=== PATIENT | male | born 1960 | race Caucasian/White ===

== ENCOUNTER 2021-06-15 02:46 | Emergency (ER) | payer BC ==
--- OUTSIDE RECORDS SUMMARY | 2021-06-15 02:49 | XMS REPORT | Continuity of Care Document ---
:1960 Author Organization [facility] t Address [address] [place] [address] Care Team Providers Name Role Phone Erick Francisco MD Primary Care Physician Therapy, Covid Infusion Attending Clinician Unavailable Doctor Unassigned, Name Attending Clinician Unavailable Lab, Fam Pob I Attending Clinician Unavailable SKY Attending Clinician Unavailable Problems Condition Condition Condition Status Onset Resolution Last Treating Co mments Source Name Details Category Date Date Treatment Clinician Date No known No known Disease Metho di active active st problems problems Hospit a l Allergies, Adverse Reactions, Alerts This patient has no known allergies or adverse reactions. Family History Family Member Diagnosis Comments Start Date Stop Date Source Natural brother Blood Clots [facility] Natural father Heart disease [facility] father Stroke [facility] Social History Social Habit Start Date Stop Date Quantity Comments Source Tobacco use and 2019-11-30 2019-11-30 Former user [facility] exposure 00:00:00 00:00:00 Hospital Alcohol intake 2019-11-30 2019-11-30 Current drinker [facility] dist 00:00:00 00:00:00 of alcohol Hospital (finding) History of 1984-11-03 Snuff User [facility] tobacco use 00:00:00 Hospital Sex Assigned At [birth year] [facility] 00:00[facility]00 00:00:00 Hospital Smoking Status Start Date Stop Date Source Never smoker [facility] Medications Ordered Filled Start Stop Current Ordering Indication Dosage Frequency Signature Comments Components Source Medication Medication Date Date Medication? Clinician (SIG) Name Name ondansetron Yes 4mg Q8H Take 1 Meth toshia (ZOFRAN) 4 -09 tablet (4 st MG tablet 00:00: mg total) Hos john 00 by mouth l every 8 (eight) hours as needed for nausea or vomiting. naloxegol 2019-0 Yes 25mg QD Take 1 Method i (MOVANTIK) 1-09 tablet (25 st 25 mg 00:00: mg total) Hospita tablet 00 by mouth l tablet daily before breakfast. ezetimibe 2018-0 Yes [facility] (ZETIA) 10 - st mg tablet 00:00: Hospita 00 l irbesartan 2019-0 Yes 150mg Q.5D 150 mg 2 Me thodi (AVAPRO) 07-30 (two) st 300 MG 00:00: times a Hospita tablet 00 day. l simvastatin 2018-0 Yes Method i (ZOCOR) 10 - st MG tablet 00:00: Hospita 00 l Procedures This patient has no known procedures. Plan of Care Planned Activity Planned Date Details Comments Source Future Scheduled Test COVID-19 VACCINE (1) [facility] [code = COVID-19 VACCINE (1)] Future Scheduled Test Hepatitis C screening [facility] (procedure) [code = [id number]] Future Scheduled Test COLONOSCOPY SCREENING [facility] [code = COLONOSCOPY SCREENING] Future Scheduled Test SHINGLES VACCINES (#1) [facility] [code = SHINGLES VACCINES (#1)] Future Scheduled Test INFLUENZA VACCINE [code [facility] = INFLUENZA VACCINE] Encounters Start End Encounter Admission Attending Care Care Encounter Source Date/Time Date/Time Type Type Clinicians Facility Department ID 2020-12-26 2020-12-26 Nurse Therapy, [facility] ..[id number] 16:09:54 18:06:53 Visit [facility] Leif Garcia [id number] Infusion [place] [id number] Surgical [id number] Center 053 2020-12-26 2020-12-26 Orders Doctor DIPAK 1..840.114 [id number] 00:00:00 00:00:00 Only Unassigned, KARIN [id number] [facility] [id number] 2020-12-24 2020-12-24 Laboratory Lab, [facility] 1..840.114 [id number] 10:58:58 11:18:58 Only Fam Pob I Health [id number] [place] [id number] [id number] nal 0[address] 2020-12-24 2020-12-24 Letter Doctor DIPAK [id number] 00:00:00 00:00:00 (Out) Unassigned, KARIN [id number] [facility] [id number] 2019-12-30 2019-12-30 Outpatient [facility] [id number] [place] 00:00:00 00:00:00 HIREN [address] Results This patient has no known results.
[2021-06-15] MEDS ORDERED: KETOROLAC 30 MG/ML INJ ONE (04:51)
[2021-06-15] MEDS ORDERED: ONDANSETRON 4 MG/2 ML VIAL ONE ×2 (04:51→06:42)
[2021-06-15] MEDS ORDERED: MORPHINE 4 MG/ML SYR ONE (04:51)
[2021-06-15] MEDS ORDERED: NA CHLORIDE 0.9% 1,000 ML ONE ×3 (04:52→07:44)
[2021-06-15 04:59] LABS: Basophils % 0.7 % (0-1.3); Hematocrit 44.8 % (39.6-49.0); MPV 11.2 fL (7.6-11.3); RBC Red Blood Cell Count 4.75 M/uL (4.33-5.43)
[2021-06-15 05:13] LABS: Albumin 4.4 g/dL (3.4-5.0); Bilirubin Direct 0.1 mg/dL (0-0.2); Bilirubin Total 0.5 mg/dL (0.2-1.0); Potassium 3.9 mmol/L (3.5-5.1); Protein, Total 7.9 g/dL (6.4-8.2)
--- NOTE | 2021-06-15 05:48 | EDPHYS ---
Physician Documentation [facility] Name: Harpal Lacey Age: 60 yrs Sex: Male : 1960 Arrival Date: 06/15/2021 Time: 02:54 Bed 9 Private MD: ED Physician Andrade Ling HPI: 06/15 04:10 This 60 yrs old Male presents to ER via Ambulatory with complaints of Back jah Pain. 04:10 The patient presents with pain that is acute, with no known mechanism of injury. The jah symptoms are located in the right mid back and right low back. Onset: The symptoms/episode began/occurred just prior to arrival, this morning. The pain radiates to the right mid back and right low back. Associated signs and symptoms: The patient has no apparent associated signs or symptoms. The problem was sustained from unknown cause. Modifying factors: The patient symptoms are alleviated by nothing, the patient symptoms are aggravated by nothing. Severity of symptoms: At their worst the symptoms were mild, moderate, in the emergency department the symptoms are unchanged. Historical: - Allergies: 04:00 No Known Allergies; lp1 - Home Meds: 04:00 Simvastatin Oral [Active]; Zetia Oral [Active]; lp1 - PMHx: 04:00 hyperlipidemia; lp1 - Immunization history:: Adult Immunizations up to date. - Social history:: Smoking status: Patient denies any tobacco usage or history of. - Family history:: not pertinent. ROS: 04:10 Constitutional: Negative for fever, chills, and weight loss, Eyes: Negative for injury, jah pain, redness, and discharge, ENT: Negative for injury, pain, and discharge, Neck: Negative for injury, pain, and swelling, Cardiovascular: Negative for chest pain, palpitations, and edema, Respiratory: Negative for shortness of breath, cough, wheezing, and pleuritic chest pain, Abdomen/GI: Negative for abdominal pain, nausea, vomiting, diarrhea, and constipation, : Negative for injury, bleeding, discharge, and swelling, MS/Extremity: Negative for injury and deformity, Skin: Negative for injury, rash, and discoloration, Neuro: Negative for headache, weakness, numbness, tingling, and seizure, Psych: Negative for depression, anxiety, suicide ideation, homicidal ideation, and hallucinations, Allergy/Immunology: Negative for hives, rash, and allergies, Endocrine: Negative for neck swelling, polydipsia, polyuria, polyphagia, and marked weight changes, Hematologic/Lymphatic: Negative for swollen nodes, abnormal bleeding, and unusual bruising. 04:10 Back: Positive for pain with movement, flank pain, radiated pain, of the right mid back and right low back. Exam: 04:10 Constitutional: This is a well developed, well nourished patient who is awake, alert, jah and in no acute distress. Head/Face: Normocephalic, atraumatic. Eyes: Pupils equal round and reactive to light, extra-ocular motions intact. Lids and lashes normal. Conjunctiva and sclera are non-icteric and not injected. Cornea within normal limits. Periorbital areas with no swelling, redness, or edema. ENT: Nares patent. No nasal discharge, no septal abnormalities noted. Tympanic membranes are normal and external auditory canals are clear. Oropharynx with no redness, swelling, or masses, exudates, or evidence of obstruction, uvula midline. Mucous membranes moist. Neck: Trachea midline, no thyromegaly or masses palpated, and no cervical lymphadenopathy. Supple, full range of motion without nuchal rigidity, or vertebral point tenderness. No Meningismus. Chest/axilla: Normal chest wall appearance and motion. Nontender with no deformity. No lesions are appreciated. Cardiovascular: Regular rate and rhythm with a normal S1 and S2. No gallops, murmurs, or rubs. Normal PMI, no JVD. No pulse deficits. Respiratory: Lungs have equal breath sounds bilaterally, clear to auscultation and percussion. No rales, rhonchi or wheezes noted. No increased work of breathing, no retractions or nasal flaring. Abdomen/GI: Soft, non-tender, with normal bowel sounds. No distension or tympany. No guarding or rebound. No evidence of tenderness throughout. Male : Normal genitalia with no discharge or lesions. Skin: Warm, dry with normal turgor. Normal color with no rashes, no lesions, and no evidence of cellulitis. MS/ Extremity: Pulses equal, no cyanosis. Neurovascular intact. Full, normal range of motion. Neuro: Awake and alert, GCS 15, oriented to person, place, time, and situation. Cranial nerves II-XII grossly intact. Motor strength 5/5 in all extremities. Sensory grossly intact. Cerebellar exam normal. Normal gait. Psych: Awake, alert, with orientation to person, place and time. Behavior, mood, and affect are within normal limits. 04:10 Abdomen/GI: Inspection: distension, that is mild, Bowel sounds: normal, active, all quadrants, Palpation: mild abdominal tenderness, in the anterior aspect of right lateral abdomen, posterior aspect of right lateral abdomen and right lower quadrant. 04:10 Back: pain, that is moderate, of the right mid back and right low back, ROM is normal, normal spinal alignment noted, CVA tenderness, that is mild. 04:10 : CVA tenderness, on the right, Male external genitalia: normal, Bladder: is normal. Vital Signs: 04:01 BP 193 / 92; Pulse 56; Resp 18; Temp 98.5; Pulse Ox 99% on R/A; Weight 104.33 kg; lp1 Height 5 ft. 10 in. (177.80 cm); Pain 10/10; 04:01 Body Mass Index 33.00 (104.33 kg, 177.80 cm) lp1 MDM: 05:27 Patient medically screened. [facility] 06/15 04:09 Order name: Basic Metabolic Panel; Complete Time: 06:39 [facility] 06/15 04:09 Order name: CBC with Diff; Complete Time: 06:39 [facility] 06/15 04:05 Order name: Stone Protocol CT lp1 06/15 04:09 Order name: Hepatic Function; Complete Time: 06:39 [facility] 06/15 04:09 Order name: Lipase; Complete Time: 06:39 [facility] 06/15 04:09 Order name: IV Saline Lock; Complete Time: 04:45 [facility] 06/15 04:09 Order name: Labs collected and sent; Complete Time: 04:45 [facility] Administered Medications: 04:44 Drug: NS 0.9% 1000 ml Route: IV; Rate: 1000 ml; Site: right antecubital; lp1 04:44 Drug: Ketorolac 30 mg Route: IVP; Site: right antecubital; lp1 04:45 Drug: morphine 4 mg Route: IVP; Site: right antecubital; lp1 04:45 Drug: Zofran (Ondansetron) 4 mg Route: IVP; Site: right antecubital; lp1 06:21 Drug: NS 0.9% 1000 ml Route: IV; Rate: 1 bolus; Site: right antecubital; ch4 06:21 Drug: Dilaudid (HYDROmorphone) 1 mg Route: IVP; Site: right antecubital; ch4 07:32 Follow up: Response: No adverse reaction; Pain is decreased ss 06:21 Drug: Zofran (Ondansetron) 4 mg Route: IVP; Site: right antecubital; ch4 07:33 Follow up: Response: No adverse reaction ss 06:22 Drug: Rocephin (cefTRIAXone) 1 grams Route: IV; Rate: per protocol; Site: right ch4 antecubital; 06:22 Drug: Flomax (tamsulosin) 0.4 mg Route: PO; ch4 07:32 Drug: NS 0.9% 1000 ml Route: IV; Rate: 1 bolus; Site: right antecubital; ss 08:48 Follow up: IV Status: Completed infusion; IV Intake: 1000ml ss Disposition Summary: 06/15/21 05:47 Discharge Ordered Location: Home jah Problem: new jah Symptoms: have improved jah Condition: Stable jah Diagnosis - Hydronephrosis with renal and ureteral calculous obstruction - 3mm right uvj jah Followup: jah - With: Private Physician - When: 2 - 3 days - Reason: Recheck today's complaints, Continuance of care, Re-evaluation by your physician Followup: jah - With: - When: 2 - 3 days - Reason: Recheck today's complaints, Re-evaluation by your physician Discharge Instructions: - Discharge Summary Sheet jah - Kidney Stones jah - Kidney Stones, [id number] jah - Hydronephrosis jah - Dietary Guidelines to Help Prevent Kidney Stones jah Forms: - Medication Reconciliation Form jah - Thank You Letter jah - Antibiotic Education jah - Prescription Opioid Use jah Prescriptions: - acetaminophen-codeine 300-15 mg Oral tablet - take 2 tablet by ORAL route every 4-6 hours please fill script eliseo 300/30 vs jah 300/15; 26 tablet; Refills: 0, Product Selection Permitted - Zofran 4 mg Oral Tablet - take 1 tablet by ORAL route every 12 hours As needed; 20 tablet; Refills: 0, [facility] Product Selection Permitted - Cipro 500 mg Oral Tablet - take 1 tablet by ORAL route every 12 hours for 7 days; 14 tablet; Refills: 0, [facility] Product Selection Permitted - tamsulosin 0.4 mg Oral capsule - take 1 capsule by ORAL route once daily 1/2 hour following the same meal each [facility] day; 20 capsule; Refills: 0, Product Selection Permitted Signatures: Dispatcher [employer] Andrade Wade MD MD cha Smirch, Shelby, RN RN ss Stacey Odonnell RN RN lp1 Keily Marino RN RN ch4
--- NOTE | 2021-06-15 05:48 | ER ---
Nurse's Notes [facility] Name: Harpal Lacey Age: 60 yrs Sex: Male : 1960 Arrival Date: 06/15/2021 Time: 02:54 Bed 9 Private MD: Diagnosis: Hydronephrosis with renal and ureteral calculous obstruction-3mm right uvj Presentation: 06/15 03:59 Chief complaint: Patient states: Right low back pain that began about 0130, woke him lp1 out of sleep; Denies pain with urination; reports nauseated. Coronavirus screen: Client denies travel out of the [place] in the last 14 days. At this time, the client does not indicate any symptoms associated with coronavirus-19. Ebola Screen: No symptoms or risks identified at this time. Risk Assessment: Do you want to hurt yourself or someone else? Patient reports no desire to harm self or others. Onset of symptoms was June 15, 2021 at 01:30. 03:59 Method Of Arrival: Ambulatory lp1 03:59 Acuity: GABO 3 lp1 04:01 Initial Sepsis Screen: Does the patient meet any 2 criteria? No. Patient's initial lp1 sepsis screen is negative. Does the patient have a suspected source of infection? No. Patient's initial sepsis screen is negative. Triage Assessment: 04:00 General: Appears uncomfortable, Behavior is restless. Pain: Complains of pain in right lp1 low back Pain radiates to right lower quadrant Pain currently is 10 out of 10 on a pain scale. Quality of pain is described as stabbing. Neuro: Level of Consciousness is awake, alert, obeys commands, Oriented to person, place, time, situation. Respiratory: Respiratory effort is even, unlabored. GI: Reports nausea. Derm: Skin is pink, warm \T\ dry. Musculoskeletal: Circulation, motion, and sensation intact. Historical: - Allergies: 04:00 No Known Allergies; lp1 - Home Meds: 04:00 Simvastatin Oral [Active]; Zetia Oral [Active]; lp1 - PMHx: 04:00 hyperlipidemia; lp1 - Immunization history:: Adult Immunizations up to date. - Social history:: Smoking status: Patient denies any tobacco usage or history of. - Family history:: not pertinent. Screenin:01 Abuse screen: Denies threats or abuse. Denies injuries from another. Nutritional lp1 screening: No deficits noted. Tuberculosis screening: No symptoms or risk factors identified. Fall Risk None identified. Assessment: 06:00 Reassessment: Patient appears in no apparent distress at this time. Patient is alert, lp1 oriented x 3, equal unlabored respirations, skin warm/dry/pink. Patient states feeling better. Patient states symptoms have improved. 07:39 Reassessment: awaiting NS to finish infusing prior to discharge. ss Vital Signs: 04:01 BP 193 / 92; Pulse 56; Resp 18; Temp 98.5; Pulse Ox 99% on R/A; Weight 104.33 kg; lp1 Height 5 ft. 10 in. (177.80 cm); Pain 10/10; 04:01 Body Mass Index 33.00 (104.33 kg, 177.80 cm) lp1 ED Course: 02:54 Patient arrived in ED. bp1 04:00 Triage completed. lp1 04:00 Arm band placed on. lp1 04:08 Andrade Ling MD is Attending Physician. jah 04:45 Inserted saline lock: 20 gauge in right antecubital area, using aseptic technique. lp1 Blood collected. 05:[address] In Process Unspecified. EDMS 05:47 Venancio James MD is Referral Physician. jah 06:00 Patient has correct armband on for positive identification. lp1 07:28 Jennifer Suggs, RODO is Primary Nurse. ss 08:48 No provider procedures requiring assistance completed. IV discontinued, intact, ss bleeding controlled, No redness/swelling at site. Pressure dressing applied. Administered Medications: 04:44 Drug: NS 0.9% 1000 ml Route: IV; Rate: 1000 ml; Site: right antecubital; lp1 04:44 Drug: Ketorolac 30 mg Route: IVP; Site: right antecubital; lp1 04:45 Drug: morphine 4 mg Route: IVP; Site: right antecubital; lp1 04:45 Drug: Zofran (Ondansetron) 4 mg Route: IVP; Site: right antecubital; lp1 06:21 Drug: NS 0.9% 1000 ml Route: IV; Rate: 1 bolus; Site: right antecubital; ch4 06:21 Drug: Dilaudid (HYDROmorphone) 1 mg Route: IVP; Site: right antecubital; ch4 07:32 Follow up: Response: No adverse reaction; Pain is decreased ss 06:21 Drug: Zofran (Ondansetron) 4 mg Route: IVP; Site: right antecubital; ch4 07:33 Follow up: Response: No adverse reaction ss 06:22 Drug: Rocephin (cefTRIAXone) 1 grams Route: IV; Rate: per protocol; Site: right ch4 antecubital; 06:22 Drug: Flomax (tamsulosin) 0.4 mg Route: PO; ch4 07:32 Drug: NS 0.9% 1000 ml Route: IV; Rate: 1 bolus; Site: right antecubital; ss 08:48 Follow up: IV Status: Completed infusion; IV Intake: 1000ml ss Intake: 08:48 IV: 1000ml; Total: 1000ml. ss Outcome: 05:47 Discharge ordered by MD. tyson 08:48 Discharged to home ambulatory, with family. ss 08:48 Condition: good 08:48 Discharge instructions given to patient, family, Instructed on discharge instructions, follow up and referral plans. medication usage, Demonstrated understanding of instructions, follow-up care, medications, Prescriptions given X 4. 08:49 Patient left the ED. ss Signatures: Dispatcher [employer] EDMS Andrade Ling MD MD cha Smirch, Shelby RN RN Stacey Odonnell RN RN lp1 Ivon Gamble Christina RN RN ch4
[2021-06-15] MEDS ORDERED: HYDROMORPHONE HCL 1 MG/ML INJ ONE (06:42)
[2021-06-15] MEDS ORDERED: TAMSULOSIN 0.4 MG SR CAP ONE (06:46)
[2021-06-15] MEDS ORDERED: CEFTRIAXONE/SWI 1gm 1 GM/10 ML SYR ONE (06:47)
[2021-06-15 08:57] VITALS: BP 193/92; TEMP 98.5; O2SAT 99
[2021-06-15] MEDS ORDERED: HYDROCODONE/APAP 10/325 TAB ONE (09:05)
--- NOTE | 2021-06-15 20:28 | RAD REPORT ---
EXAM DESCRIPTION: CT Abdomen and Pelvis Without Intravenous Contrast CLINICAL HISTORY: The patient is 60 years old and is Male; PAIN TECHNIQUE: Axial computed tomography images of the abdomen and pelvis without intravenous contrast. Sagittal and coronal reformatted images were created and reviewed. This CT exam was performed usi ng one or more of the following dose reduction techniques: automated exposure control, adjustment o f the mA and/or kV according to patient size, and/or use of iterative reconstruction technique. COMPARISON: No relevant prior studies available. FINDINGS: Lung bases: Groundglass changes along the medial right lung base which may be due to ate lectasis. ABDOMEN: Liver: Unremarkable. Gallbladder and bile ducts: Gallbladder is surgically absent. No ductal dilation. Pancreas: Unremarkable. No ductal dilation. Spleen: Unremarkable. No splenomegaly. Adrenals: Unremarkable. No mass. Kidneys and ureters: 3 mm stone at the right UVJ. Mild right hydroureteronephrosis and perinephri c/periureteral stranding. Simple cyst in the right kidney. ACR White Paper guidelines (Herts, et al. JACR 2018; 15(2):2 83-273) suggest no follow-up is necessary. Stomach and bowel: Unremarkable. No obstruction. No mucosal thickening. PELVIS: Appendix: The appendix is normal. Bladder: Suggestion of mild diffuse bladder wall thickening, but the bladder is nondistended limi ting evaluation. No stones. Reproductive: Unremarkable as visualized. ABDOMEN and PELVIS: Intraperitoneal space: Unremarkable. No free air. No significant fluid collection. Bones/joints: No acute fracture. No dislocation. Soft tissues: Unremarkable. Vasculature: Scattered atherosclerotic vascular calcifications. No abdominal aortic aneurysm. Lymph nodes: Unremarkable. No enlarged lymph nodes. IMPRESSION: 3 mm stone at the right UVJ. Mild right hydroureteronephrosis and perinephric/periureter al stranding. Electronically signed by: Darin Farley MD 06/15/2021 5:43 AM CDT Due to temporary technical issues with the PACS/Fluency reporting system, reports are being signed by the in house radiologists without review as a courtesy to insure prompt reporting. The interpreting radiologist is fully responsible for the content of the report.
== END 2021-06-15 08:49 | disposition home or self-care (01) ==
LOC: ER 02:46
DX: N13.2 Hydronephrosis with renal and ureteral calculous obstruction (principal); E78.5 Hyperlipidemia, unspecified
CPT/HCPCS: 96361; 85025; 80048; 36415; 80076; 83690; 76377; 74176; 96375; 96374; 99284; J1170; J0696; J7030 ×3; J2405 ×2